=== PATIENT | female | born 1950 | race Caucasian/White ===

== ENCOUNTER 2018-06-12 13:14 | Emergency (ER) | payer OTHER, BC ==
[2018-06-12 13:27] VITALS: BP 137/89; PULSE 83; RESP 18; TEMP 97.9; O2SAT 98
--- NOTE | 2018-06-12 13:29 | C.PDOC ---
History Of Present Illness 67 yo female BIBA for evaluation of left wrist pain , deformity sustained [employer] after sustained mechanical fall. 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 Otherwise, pt denies head injury, LOC, syncope, headache, dizziness, visual changes, focal deficits, CP, SOB, palpitation, abd. pain, N/V, back pain, denies weakness, sensory or vascular deficits to left arm. Ambulatory in ED with stable gait, appears in pain. Time Seen by Provider: 06/12/18 13:17 Chief Complaint (Nursing): Upper Extremity Problem/Injury History Per: Patient Past Medical History Reviewed: Historical Data, Nursing Documentation, Vital Signs Vital Signs: Last Vital Signs Temp 97.9 F 06/12/18 13:16 Pulse 83 06/12/18 13:16 Resp 18 06/12/18 13:16 BP 137/89 06/12/18 13:16 Pulse Ox 98 06/12/18 14:03 - Medical History PMH: Arthritis Family History: States: No Known Family Hx - Social History Hx Tobacco Use: No Hx Alcohol Use: No Hx Substance Use: No - Immunization History Hx Tetanus Toxoid Vaccination: No Hx Influenza Vaccination: No Hx Pneumococcal Vaccination: No Review Of Systems Except As Marked, All Systems Reviewed And Found Negative. Constitutional: Negative for: Fever, Chills Eyes: Negative for: Vision Change, Redness ENT: Negative for: Ear Pain, Ear Discharge, Nose Discharge, Throat Pain, Throat Swelling Cardiovascular: Negative for: Chest Pain, Palpitations, Edema, Light Headedness Respiratory: Negative for: Cough, Shortness of Breath, Wheezing Gastrointestinal: Negative for: Nausea, Vomiting, Abdominal Pain Musculoskeletal: Positive for: Other (wrist pain and deformity). Negative for: Neck Pain, Back Pain Skin: Negative for: Bruising Neurological: Negative for: Weakness, Numbness Physical Exam - Physical Exam Appears: Well, Non-toxic, Other (in pain) Skin: Normal Color, Warm, No Rash, No Ecchymosis Head: Atraumatic, Normacephalic Eye(s): bilateral: PERRL Nose: No Flaring, No Discharge Oral Mucosa: Moist, No Drooling Tongue: Normal Appearing Lips: Normal Appearing Throat: No Erythema, No Drooling Neck: Trachea Midline, No Midline Cervical Tenderness, No Paracervical Tenderness, No Step Off Deformity, Supple Chest: Symmetrical, No Deformity, No Tenderness Cardiovascular: Rhythm Regular Respiratory: No Decreased Breath Sounds, No Accessory Muscle Use, No Stridor, No Wheezing Gastrointestinal/Abdominal: Soft, No Tenderness Back: No Vertebral Tenderness, No Paraspinal Tenderness Extremity: No Normal ROM (pain on left wrist flexion/extension), Tenderness ( left wris, diffuse) ED Course And Treatment O2 Sat by Pulse Oximetry: 98 Pulse Ox Interpretation: Normal - Other Rad Left wrist X-Ray: Interpreted by Me, Viewed By Me Interpretation: (+) comminuted distal radial fx, angulated Progress Note: Initailly, pt refused pain medictaion offered in ED. Imaging performed. On re-eval, pt still was offered pain medictaion and accepte samara this time. Pt is afebrile, hemodynamicaly stable. AMbulatory in ED. Head: AT/ NC. Neck: Supple, (-) midline tenderness. Lungs: CTA B/L, BS equal B/L. Abd: benign. Left wrist: (+) deformity over dorsal aspect wrist, no neurovscular deficits distally to injury, no open wounds. Imaging review (+) comminuted fx distal radius, intra-articular. case discussed with and splint with outpt f/u recommend. FInger splint applied, pain medictaion. Sling applied to Left arm. Pt advised and ref. to f/U with Ortho in 2-3 days for re-eavl. return if any worsening or new changes. Orthopedic Time Performed: 13:44 Time Out: Side verified, Site verified, Patient ID confirmed Procedure: Splint Other:: Sugar tong Location: Left, Wrist Consent obtained: Verbal Performed by: Mid-level Provider Diagnosis: Fracture Type: Closed, Comminuted Location: Left, Distal Bone: Radius Disposition Counseled Patient/Family Regarding: Studies Performed, Diagnosis, Need For Followup, Rx Given - Disposition Referrals: [facility] [Outside] Noemi Saldivar MD [Staff Provider] - Disposition: HOME/ ROUTINE Disposition Time: 13:45 Condition: STABLE Additional Instructions: Splint until re-evaluated by Orthopedist Take pain medication as need for pain as prescribed Follow up with Orthopedist at [facility] on or with private orthopedist in 2-3 days for re-evaluation and further treatment return to ED if nay worsening or new changes. Tablilla hasta reevaluar por ortopedista [place] medicamentos para el dolor segn sea necesario para el dolor segn lo prescrito Ferm[place] un seguimiento con un ortopedista en [facility] el jueves o con un ortopeda privado en 2-3 doan para rena nueva evaluacin y tratamiento posterior regresar a ED si no empeorar o nuevos cambios. Prescriptions: traMADol [Ultram] 50 mg PO TID #7 tab Instructions: Wrist Fracture (DC) Forms: [facility] (Turkish) Print Language: WELSH - Clinical Impression Clinical Impression: Wrist fracture
--- NOTE | 2018-06-12 14:07 | RAD ---
Date of service: 06/12/2018 PROCEDURE: Left Wrist Radiographs. HISTORY: injury COMPARISON: None. FINDINGS: BONES: Intra articular comminuted distal radial fracture. Volar apical angulation deformity. Slight ulnar displacement of 1 comminuted fracture radial component. JOINTS: No dislocation. SOFT TISSUES: Surrounding soft tissue swelling OTHER FINDINGS: None. IMPRESSION: Intra articular comminuted distal radial fracture. Volar apical angulation deformity. Slight ulnar displacement of 1 comminuted fracture radial component.
== END 2018-06-12 14:21 | disposition home or self-care (01) ==
LOC: C.ER 13:14
DX: S52.572A Other intraarticular fracture of lower end of left radius, initial encounter for closed fracture (principal); S52.252A Displaced comminuted fracture of shaft of ulna, left arm, initial encounter for closed fracture; W07.XXXA Fall from chair, initial encounter
CPT/HCPCS: 29125; 73110; 96372; 99283; J1885

== ENCOUNTER 2019-02-12 21:33 | Observation (INO) | payer BC, OTHER ==
[2019-02-12 21:51] VITALS: RESP 20
--- NOTE | 2019-02-12 23:18 | C.PDOC ---
Time Seen by Provider: 02/12/19 21:57 Chief Complaint (Nursing): Lower Extremity Problem/Injury Past Medical History Vital Signs: Last Vital Signs Temp 98.5 F 02/12/19 21:43 Pulse 99 H 02/12/19 21:43 Resp 20 02/12/19 21:43 BP 130/87 02/12/19 21:43 Pulse Ox 98 02/12/19 21:43 Primary Care Provider: FAMILY PROVIDER,NO - Medical History PMH: Arthritis - Social History Hx Tobacco Use: No Hx Alcohol Use: No Hx Substance Use: No - Immunization History Hx Tetanus Toxoid Vaccination: No Hx Influenza Vaccination: No Hx Pneumococcal Vaccination: No ED Course And Treatment O2 Sat by Pulse Oximetry: 98 Disposition Counseled Patient/Family Regarding: Diagnosis, Need For Followup, Rx Given - Disposition Referrals: Podiatry Clinic [Outside] Disposition: HOME/ ROUTINE Disposition Time: 23:17 Condition: STABLE Instructions: Foot Fracture (DC) Forms: Gen Discharge Inst Kiswahili, [facility] [facility] (Kiswahili), Work Excuse Print Language: PARAGUAYAN - Clinical Impression Clinical Impression: Foot fracture, left
--- NOTE | 2019-02-13 04:18 | CP.PCM.HP ---
<Gabriella Meneses - Last Filed: 02/13/19 05:17> History of Present Illness - History of Present Illness History of Present Illness: cc: left foot pain Patient is a 68 year old female who presents to ED s/p slip at work today. 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 She reports pain to left plantar foot with inability to bear weight. Patient lives alone and is unable to ambulate with crutches. She has a sister who can help care for her, but does not want to call her now as she does not want to wake her. Denies loss of sensation or cold foot. No further complaints pmhx: RA pshx: denies allergies: denies meds: denies sochx: denies Present on Admission - Present on Admission Any Indicators Present on Admission: No Review of Systems - EENT Eyes: absent: Change in Vision - Cardiovascular Cardiovascular: absent: Chest Pain, Leg Edema, Lightheadedness - Respiratory Respiratory: absent: Cough, Dyspnea - Gastrointestinal Gastrointestinal: absent: Diarrhea, Nausea - Musculoskeletal Musculoskeletal: Abnormal Gait, Arthralgias - Neurological Neurological: absent: Dizziness, Syncope Past Patient History - Past Social History Smoking Status: Never Smoked - MUSCULOSKELETAL/RHEUMATOLOGICAL Hx Arthritis: Yes - PSYCHIATRIC Hx Substance Use: No - SURGICAL HISTORY Hx Surgeries: No Meds Allergies/Adverse Reactions: Allergies Allergy/AdvReac Type Severity Reaction Status Date / Time No Known Allergies Allergy Verified 06/12/18 13:19 Physical Exam - Constitutional Appears: Non-toxic, No Acute Distress - Head Exam Head Exam: ATRAUMATIC, NORMAL INSPECTION, NORMOCEPHALIC - Eye Exam Eye Exam: EOMI, Normal appearance Pupil Exam: NORMAL ACCOMODATION, PERRL - ENT Exam ENT Exam: Mucous Membranes Moist, Normal Exam - Neck Exam Neck exam: Positive for: Normal Inspection - Respiratory Exam Respiratory Exam: Clear to Auscultation Bilateral, NORMAL BREATHING PATTERN - Cardiovascular Exam Cardiovascular Exam: REGULAR RHYTHM, +S1, +S2 - GI/Abdominal Exam GI & Abdominal Exam: Normal Bowel Sounds, Soft. absent: Distended - Extremities Exam Extremities exam: Negative for: calf tenderness, normal inspection Additional comments: left foot wrapped in yumiko bandage. TTP left plantar aspect. Restricted ROM - Neurological Exam Neurological exam: Alert, Oriented x3 - Psychiatric Exam Psychiatric exam: Normal Affect, Normal Mood - Skin Skin Exam: Dry, Intact, Normal Color, Warm Results - Vital Signs Recent Vital Signs: Last Vital Signs Temp 98.5 F 02/12/19 21:43 Pulse 99 H 02/12/19 21:43 Resp 20 02/12/19 21:43 BP 130/87 02/12/19 21:43 Pulse Ox 98 02/12/19 23:18 Assessment & Plan - Assessment and Plan (Free Text) Assessment: 68F admitted for left foot fracture s/p slip Plan: Left foot fracture -f/u xray report -Motrin 600mg q6 prn pain -Podiatry consult, Dr. Rojas Dispo: Patient will call sister this morning to get her, will have sister care for her at home Discussed w/ Dr. Pace -Gabriella Meneses, PGY-1 <Travis Pace N - Last Filed: 02/13/19 06:34> Results - Vital Signs Recent Vital Signs: Last Vital Signs Temp 97.9 F 02/13/19 03:25 Pulse 86 02/13/19 03:25 Resp 20 02/13/19 03:25 BP 148/71 02/13/19 03:25 Pulse Ox 98 02/13/19 03:25
[2019-02-13 07:34] LABS: BASO # 0.1 K/uL (0.0-0.2); BASO % 0.9 % (0.0-2.0); EOS # 0.4 K/uL (0.0-0.7); EOS % 5.4 % (0.0-4.0); HEMOGLOBIN 11.8 g/dL (11.0-16.0); LYMPH # 1.8 K/uL (1.0-4.3); LYMPH % 24.4 % (20.0-40.0); MEAN CELL VOLUME 92.5 fL (81.0-99.0); MEAN CORPUSCULAR HEMOGLOBIN 31.8 pg (27.0-31.0); MEAN CORPUSCULAR HGB CONC 34.3 g/dL (33.0-37.0); MEAN PLATELET VOLUME 7.6 fL (7.2-11.7); MONO # 0.9 K/uL (0.0-0.8); MONO % 11.5 % (0.0-10.0); NEUT # 4.3 K/uL (1.8-7.0); NEUT % 57.8 % (50.0-75.0); RBC 3.7 Mil/uL (3.80-5.20); RED CELL DISTRIBUTION WIDTH 13.5 % (11.5-14.5); WHITE BLOOD COUNT 7.5 K/uL (4.8-10.8)
[2019-02-13 08:19] LABS: BASO # 0.1 K/uL (0.0-0.2); BASO % 0.6 % (0.0-2.0); EOS # 0.3 K/uL (0.0-0.7); HEMOGLOBIN 11.9 g/dL (11.0-16.0); LYMPH # 1.7 K/uL (1.0-4.3); LYMPH % 18.2 % (20.0-40.0); MEAN CELL VOLUME 90.5 fL (81.0-99.0); MEAN CORPUSCULAR HEMOGLOBIN 30.7 pg (27.0-31.0); MEAN PLATELET VOLUME 7.4 fL (7.2-11.7); MONO # 0.9 K/uL (0.0-0.8); MONO % 9.1 % (0.0-10.0); NEUT # 6.5 K/uL (1.8-7.0); NEUT % 69.1 % (50.0-75.0); NRBC % 0.2 % (0.0-2.0); RBC 3.89 Mil/uL (3.80-5.20); RED CELL DISTRIBUTION WIDTH 13.4 % (11.5-14.5); WHITE BLOOD COUNT 9.5 K/uL (4.8-10.8)
[2019-02-13 08:23] LABS: ALB/GLOB RATIO 1.1 (1.0-2.1); ALBUMIN 3.7 g/dL (3.5-5.0); ALT/SGPT 23 U/L (9-52); AST/SGOT 30 U/L (14-36); BLOOD UREA NITROGEN 15 mg/dL (7-17); CALCIUM 9.1 mg/dl (8.6-10.4); GFR NON-AFRICAN AMERICAN > 60
[2019-02-13 08:24] VITALS: BP 126/78; PULSE 77; TEMP 98; O2SAT 99
--- NOTE | 2019-02-13 10:55 | CP.PCM.DIS ---
Provider - Provider Date of Admission: 02/13/19 02:00 Attending physician: Travis Pace MD Consults: 02/13/19 05:15 Podiatry Consult Routine Comment: Consulting Provider: Rufina Rojas Consulting Physician: Rufina Rojas Reason for Consult: suspected left foot fracture 02/13/19 05:45 Case Management Referral Routine Comment: Diagnosis : Left Foot Fracture. Physician Instructions: Reason For Exam: Pt. Lives Alone. Reason for Referral: Discharge Planning Time Spent in preparation of Discharge (in minutes): 45 Diagnosis - Discharge Diagnosis (1) Foot fracture, left Status: Acute Hospital Course - Lab Results Lab Results: Most Recent Lab Values WBC 7.5 K/uL (4.8-10.8) 02/13/19 07:17 RBC 3.70 Mil/uL (3.80-5.20) L 02/13/19 07:17 Hgb 11.8 g/dL (11.0-16.0) 02/13/19 07:17 Hct 34.2 % (34.0-47.0) 02/13/19 07:17 MCV 92.5 fL (81.0-99.0) D 02/13/19 07:17 MCH 31.8 pg (27.0-31.0) H 02/13/19 07:17 MCHC 34.3 g/dL (33.0-37.0) 02/13/19 07:17 RDW 13.5 % (11.5-14.5) 02/13/19 07:17 Plt Count 258 K/uL (130-400) 02/13/19 07:17 MPV 7.6 fL (7.2-11.7) 02/13/19 07:17 Neut % (Auto) 57.8 % (50.0-75.0) 02/13/19 07:17 Lymph % (Auto) 24.4 % (20.0-40.0) 02/13/19 07:17 [place] % (Auto) 11.5 % (0.0-10.0) H 02/13/19 07:17 Eos % (Auto) 5.4 % (0.0-4.0) H 02/13/19 07:17 Baso % (Auto) 0.9 % (0.0-2.0) 02/13/19 07:17 Neut # (Auto) 4.3 K/uL (1.8-7.0) 02/13/19 07:17 Lymph # (Auto) 1.8 K/uL (1.0-4.3) 02/13/19 07:17 [place] # (Auto) 0.9 K/uL (0.0-0.8) H 02/13/19 07:17 Eos # (Auto) 0.4 K/uL (0.0-0.7) 02/13/19 07:17 Baso # (Auto) 0.1 K/uL (0.0-0.2) 02/13/19 07:17 Sodium 142 mmol/L (132-148) 02/13/19 07:17 Potassium 3.7 mmol/L (3.6-5.2) 02/13/19 07:17 Chloride 107 mmol/L (98-107) 02/13/19 07:17 Carbon Dioxide 24 mmol/L (22-30) 02/13/19 07:17 Anion Gap 15 (10-20) 02/13/19 07:17 BUN 15 mg/dL (7-17) 02/13/19 07:17 Creatinine 0.6 mg/dL (0.7-1.2) L 02/13/19 07:17 Est GFR ( Amer) > 60 02/13/19 07:17 Est GFR (Non-Af Amer) > 60 02/13/19 07:17 Random Glucose 92 mg/dL (65-105) 02/13/19 07:17 Calcium 9.1 mg/dl (8.6-10.4) 02/13/19 07:17 Total Bilirubin 0.6 mg/dL (0.2-1.3) 02/13/19 07:17 AST 30 U/L (14-36) 02/13/19 07:17 ALT 23 U/L (9-52) 02/13/19 07:17 Alkaline Phosphatase 100 U/L (38-126) 02/13/19 07:17 Total Protein 7.1 g/dL (6.3-8.3) 02/13/19 07:17 Albumin 3.7 g/dL (3.5-5.0) 02/13/19 07:17 Globulin 3.4 gm/dL (2.2-3.9) 02/13/19 07:17 Albumin/Globulin Ratio 1.1 (1.0-2.1) 02/13/19 07:17 - Hospital Course Hospital Course: cc: left foot pain Patient is a 68 year old female who presents to ED s/p slip at work today. 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 She reports pain to left plantar foot with inability to bear weight. Patient lives alone and is unable to ambulate with crutches. She has a sister who can help care for her, but does not want to call her now as she does not want to wake her. Denies loss of sensation or cold foot. No further complaints pmhx: RA pshx: denies allergies: denies meds: denies sochx: denies Foot Xray Left: cuneiform fracture non displaced Patient is be discharged home, seen by podiatry and physical therapy Please obtain a rolling walker and a CAM walker for your left foot. Ambulate with limited weight on your left foot Please follow up with Dr Rojsa in the podiatry clinic within 7 days of discharge you may take over the counter tylenol for pain. do not exceed 4g in a day take care and be well CK PGY1 Discharge Exam - Head Exam Head Exam: ATRAUMATIC, NORMAL INSPECTION, NORMOCEPHALIC - Additional Findings Additional findings: - Constitutional Appears: Non-toxic, No Acute Distress - Head Exam Head Exam: ATRAUMATIC, NORMAL INSPECTION, NORMOCEPHALIC - Eye Exam Eye Exam: EOMI, Normal appearance Pupil Exam: NORMAL ACCOMODATION, PERRL - ENT Exam ENT Exam: Mucous Membranes Moist, Normal Exam - Neck Exam Neck exam: Positive for: Normal Inspection - Respiratory Exam Respiratory Exam: Clear to Auscultation Bilateral, NORMAL BREATHING PATTERN - Cardiovascular Exam Cardiovascular Exam: REGULAR RHYTHM, +S1, +S2 - GI/Abdominal Exam GI & Abdominal Exam: Normal Bowel Sounds, Soft. absent: Distended - Extremities Exam Extremities exam: Negative for: calf tenderness, normal inspection Additional comments: left foot wrapped in yumiko bandage. TTP left plantar aspect. Restricted ROM - Neurological Exam Neurological exam: Alert, Oriented x3 - Psychiatric Exam Psychiatric exam: Normal Affect, Normal Mood - Skin Skin Exam: Dry, Intact, Normal Color, Warm Discharge Plan - Follow Up Plan Condition: STABLE Disposition: HOME/ ROUTINE Instructions: Foot Fracture (DC) Additional Instructions: Patient is be discharged home Please obtain a rolling walker and a CAM walker for your left foot. Ambulate with limited weight on your left foot Please follow up with Dr Rojas in the podiatry clinic within 7 days of discharge you may take over the counter tylenol for pain. do not exceed 4g in a day take care and be well CK PGY1 Referrals: Podiatry Clinic [Outside] Rufina Rojas DPM [Staff Provider] -
[2019-02-13 11:21] LABS: ALB/GLOB RATIO 1.1 (1.0-2.1); ALBUMIN 3.8 g/dL (3.5-5.0); ALT/SGPT 27 U/L (9-52); AST/SGOT 27 U/L (14-36); BLOOD UREA NITROGEN 16 mg/dL (7-17); CALCIUM 9.2 mg/dl (8.6-10.4); GFR NON-AFRICAN AMERICAN > 60
--- NOTE | 2019-02-13 12:00 | CP.PCM.CON ---
History of Present Illness - History of Present Illness History of Present Illness: Podiatry Consult Note - Dr. Rojas 68 year old female patient PMHx RA seen and evaluated at bedside this AM for left foot pain. Patient states she slipped and fell on papers while working earlier today. Patient reports pain in her midfoot and difficulty with ambulation. Denies LOC. Patient unable to ambulate with crutches; states she ambulates with a cane at baseline. No other lower extremity complaints. Denies n/v/f/d/c/sob/peck/cp. PMH: RA PSH: denies SH: denies FH: unknown All: NKDA Review of Systems - Review of Systems All systems: reviewed and no additional remarkable complaints except (as per HPI) Past Patient History - Past Social History Smoking Status: Never Smoked - MUSCULOSKELETAL/RHEUMATOLOGICAL Hx Arthritis: Yes - PSYCHIATRIC Hx Substance Use: No - SURGICAL HISTORY Hx Surgeries: No Meds Allergies/Adverse Reactions: Allergies Allergy/AdvReac Type Severity Reaction Status Date / Time No Known Allergies Allergy Verified 06/12/18 13:19 - Medications Medications: Current Medications Enoxaparin Sodium (Lovenox) 40 mg SC DAILY ART Ibuprofen (Motrin Tab) 600 mg PO TID PRN PRN Reason: Pain, moderate (4-7) Pneumococcal Polyvalent Vaccine (Pneumovax 23 Vaccine) 0.5 ml IM .ONCE ONE Stop: 02/15/19 11:01 Physical Exam - Constitutional Appears: Non-toxic, No Acute Distress - Extremities Exam Additional comments: LLE focused: VASC: DP and PT pulses palpable. CFT <3 seconds to digits. TG WNL. Minimal edema noted to midfoot. NEURO: Light touch and protective sensation intact. DERM: No open lesions present. No ecchymosis, no erythema. ORTHO: Pain on palpation dorsum of midfoot. No gross deformities noted. - Neurological Exam Neurological exam: Alert, Oriented x3 - Psychiatric Exam Psychiatric exam: Normal Affect, Normal Mood Results - Vital Signs Recent Vital Signs: Last Vital Signs Temp 98.0 F 02/13/19 08:23 Pulse 77 02/13/19 08:23 Resp 20 02/13/19 08:23 BP 126/78 02/13/19 08:23 Pulse Ox 99 02/13/19 08:23 - Labs Result Diagrams: 02/13/19 07:17 02/13/19 07:17 Labs: Laboratory Results - last 24 hr 02/13/19 02/13/19 02/13/19 03:20 03:20 07:17 WBC 9.5 7.5 RBC 3.89 3.70 L Hgb 11.9 11.8 Hct 35.1 34.2 MCV 90.5 92.5 D MCH 30.7 31.8 H MCHC 34.0 34.3 RDW 13.4 13.5 Plt Count 257 258 MPV 7.4 7.6 Neut % (Auto) 69.1 57.8 Lymph % (Auto) 18.2 L 24.4 [place] % (Auto) 9.1 11.5 H Eos % (Auto) 3.0 5.4 H Baso % (Auto) 0.6 0.9 Neut # (Auto) 6.5 4.3 Lymph # (Auto) 1.7 1.8 [place] # (Auto) 0.9 H 0.9 H Eos # (Auto) 0.3 0.4 Baso # (Auto) 0.1 0.1 Sodium 141 Potassium 3.9 Chloride 107 Carbon Dioxide 25 Anion Gap 13 BUN 16 Creatinine 0.6 L Est GFR ( Amer) > 60 Est GFR (Non-Af Amer) > 60 Random Glucose 101 Calcium 9.2 Total Bilirubin 0.5 AST 27 ALT 27 Alkaline Phosphatase 112 Total Protein 7.3 Albumin 3.8 Globulin 3.5 Albumin/Globulin Ratio 1.1 02/13/19 07:17 WBC RBC Hgb Hct MCV MCH MCHC RDW Plt Count MPV Neut % (Auto) Lymph % (Auto) [place] % (Auto) Eos % (Auto) Baso % (Auto) Neut # (Auto) Lymph # (Auto) [place] # (Auto) Eos # (Auto) Baso # (Auto) Sodium 142 Potassium 3.7 Chloride 107 Carbon Dioxide 24 Anion Gap 15 BUN 15 Creatinine 0.6 L Est GFR ( Amer) > 60 Est GFR (Non-Af Amer) > 60 Random Glucose 92 Calcium 9.1 Total Bilirubin 0.6 AST 30 ALT 23 Alkaline Phosphatase 100 Total Protein 7.1 Albumin 3.7 Globulin 3.4 Albumin/Globulin Ratio 1.1 Assessment & Plan - Assessment and Plan (Free Text) Assessment: 68F with nondisplaced medial cuneiform fracture Plan: Patient seen and evaluated Discussed with attending, Dr. Rojas Left foot XR reveals nondisplaced dorsal medial cuneiform fracture Recommend NWB posterior splint with the assistance of walker -NWB CAM walker acceptable as well -Rx walker and CAM walker given RICE therapy Pain control per primary team Patient to follow up with Dr. Rojas in the podiatry clinic next Monday Stable for dc per podiatry Thank you for the consult
--- NOTE | 2019-02-13 12:20 | RAD ---
Date of service: 02/12/2019 PROCEDURE: Left Foot Radiographs. HISTORY: foot injury COMPARISON: None. TECHNIQUE: 3 views obtained. FINDINGS: BONES: Bone alignment is normal. There is periarticular bone demineralization there is no acute displaced fracture or bone destruction. JOINTS: There is severe degenerative osteoarthrosis in the 1st MTP joint with reduced joint space, marginal spurring and subarticular cystic changes. There is mild hallux valgus. SOFT TISSUES: There is moderate periarticular soft tissue swelling at the 1st MTP joint. OTHER FINDINGS: None. IMPRESSION: No acute displaced fracture or dislocation.
[2019-02-13] MEDS ORDERED: Pneumococcal 23-Valent Vaccine IM ONE (13:36)
[2019-02-14] MEDS ORDERED: Enoxaparin 40 mg Syringe SC SCH (10:00)
[2019-02-15] MEDS ORDERED: Pneumococcal 23-Valent Vaccine IM ONE (11:00)
== END 2019-02-13 16:06 | disposition home or self-care (01) ==
LOC: C.ER 21:33 → C.6T 02-13 02:00
PROVIDERS: ADMIT Emergency Medicine; ATTEND Emergency Medicine
DX: S92.245A Nondisplaced fracture of medial cuneiform of left foot, initial encounter for closed fracture (principal); W01.0XXA Fall on same level from slipping, tripping and stumbling without subsequent striking against object, initial encounter; Y93.H3 Activity, building and construction; Y92.69 Other specified industrial and construction area as the place of occurrence of the external cause; Y99.0 Civilian activity done for income or pay
CPT/HCPCS: 36415; 73630; 80053; 85025; 90732; 97116; 97162; 97165; 97530; G0009; G0378; G8978; G8979; G8987; G8988; G8989